=== PATIENT | male | born 1980 | race Caucasian/White ===

== ENCOUNTER 2021-05-11 18:49 | Observation (INO) | payer BC ==
[~2021-05-11] VITALS: Ht 185.4 cm; Wt 139.9 kg
[2021-05-11 20:01] LABS: BASO # 0.1 K/mm3 (0.0-0.2); BASO % 0.7 % (0.0-2.0); EOS # 0.3 K/mm3 (0.0-0.7); EOS % 3.2 % (0.0-4.0); GRAN # 5.1 K/mm3 (1.4-6.5); GRAN % 56.1 % (42.2-75.2); HEMOGLOBIN 14.3 g/dl (13.5-18.0); LYMPH # 3.2 K/mm3 (1.2-3.4); MEAN CELL VOLUME 85 fl (80.0-100.0); MEAN CORPUSCULAR HEMOGLOBIN 29 pg (27-31); MEAN CORPUSCULAR HGB CONC 34 g/dl (33.0-37.0); MEAN PLATELET VOLUME 9.9 fl (7.4-10.4); MONO # 0.4 K/mm3 (0.1-0.6); MONO % 4.7 % (1.7-9.3); PLATELET COUNT 208 K/mm3 (130-400); RED BLOOD COUNT 4.94 M/mm3 (4.20-5.60); REDCELL DISTRIBUTION WIDTH-CV 13.1 % (11.5-14.5)
[2021-05-11 20:17] LABS: ALBUMIN 4.3 gm/dL (3.5-5.0); BILIRUBIN,TOTAL 0.9 mg/dL (0.2-1.2); C-REACTIVE PROTEIN 6.15 mg/dL (0.00-0.50); CALCIUM 9.4 mg/dL (8.4-10.2); CREATININE, serum 0.88 mg/dL (0.72-1.25); POTASSIUM 5.2 mmol/L (3.5-4.5); TOTAL PROTEIN 8.3 gm/dL (6.2-8.1)
[2021-05-11 21:41] LABS: COLLECTION METHOD CLEAN CATCH
[2021-05-11 21:52] LABS: MUCOUS Present (NOT PRESENT); PH 5 (5-8); SQUAMOUS EPITHELIAL None Seen /hpf (0-10); URINE APPEARANCE Clear (CLEAR/HAZY); URINE BACTERIA None Seen /hpf (NONE SEEN); URINE BILIRUBIN Negative (NEGATIVE); URINE BLOOD Negative (NEGATIVE); URINE COLOR Yellow (YELLOW); URINE GLUCOSE Negative (NEGATIVE); URINE KETONE Negative (NEGATIVE); URINE LEUKOCYTE ESTERASE Negative (NEGATIVE); URINE NITRATE Negative (NEGATIVE); URINE PROTEIN(semi-quant) Negative (NEGATIVE); URINE RBC 0-2 /hpf (0-2); URINE UROBILINOGEN Negative (NEGATIVE)
[2021-05-12] VITALS (11 sets, daily range): BP systolic 121–139; BP diastolic 59–77; PULSE 65–80; TEMP 97.4–98.2
--- NOTE | 2021-05-12 00:23 | NUR ---
RECEIVED REPORT FROM Bhavani ISBELL, GEMA. WAITING FOR PATIENT ARRIVAL FOR ADMIT TO ROOM 331.
--- NOTE | 2021-05-12 00:40 | NUR ---
PATIENT ARRIVED TO ROOM 331 VIA W/C BEING TRANSPORTED BY Bhavani RNGEMA. IV FLUIDS RUNNING PER GRAVITY WITH NO PROBLEMS AT TIME OF ADMIT. DENIES ANY DISCOMFORT, CHEST PAIN/NAUSEA/SOA AT THIS TIME. DENIES URGE TO VOID.
[2021-05-12] MEDS ORDERED: ZYLOPRIM 100MG100 MG PO (00:45)
[2021-05-12] MEDS ORDERED: TRICOR145 MG PO (00:48)
[2021-05-12] MEDS ORDERED: ADVIL LIQUI-GE200 MG PO (00:48)
[2021-05-12] MEDS ORDERED: ALEVE 220MG220 MG PO (00:50)
[2021-05-12] MEDS ORDERED: COLCRYS0.6 MG PO (00:51)
[2021-05-12] MEDS ORDERED: MOBIC15 MG PO (00:53)
--- NOTE | 2021-05-12 07:17 | NUR ---
CHANGE OF SHIFT REPORT GIVEN TO DAY SHIFT RNDENISE.
--- NOTE | 2021-05-12 07:30 | NUR ---
Pt doing well this morning, having little to no pain. Preop checklist completed, pt ready for surgery. All questions answered, call light within reach, will continue to monitor
--- NOTE | 2021-05-12 11:00 | NUR ---
Pt back recently from surgery. He is alert and oriented and has had ice water with no complaints of nausea. Gave him some applesauce and water at this time. Pts mother at bedside. Pt denies having any pain. Educated him on post op care. Call light within reach, will continue to monitor
--- NOTE | 2021-05-12 11:26 | NUR ---
First visit from the family and consumer education teacher. NO needs right now.
--- NOTE | 2021-05-12 13:00 | NUR ---
Pt has had and tolerated a general diet, continues to state that he is not having any pain. Pts mom has been present off and on. VSS. PT continues to deny any needs, call light within reach
--- NOTE | 2021-05-12 14:02 | NUR ---
Social Work student met with patient to discuss discharge planning. Patient lives alone in [place]. Patient's emergency contact is his mom, Farzaneh(ph#[phone]). Patient sees Dr. Vance Kate for primary care, and he receives his medications from [facility]. Patient utilizes a CPAP for durable medical equiptment. Patient does not use any oxygen. Patient is independent with his ADL's. Patient has not filled out a DPOA-HC, and stated he is not interested in filling one out at this time. Therefore, SW student established next of kin. Patient is not and has never had kids, so his next of kin would be his mother, Farzaneh. The patient's father is . Patient has one brother, Timoteo Mccarthy(ph#[phone]), and one sister, Jenny Parr(ph#[phone]). Discharge plan: Home
--- NOTE | 2021-05-12 15:16 | NUR ---
Pt continues to do well, he has voided several times. Still not having any complaints of pain, denies the need for pain medication. Call light within reach, will continue to monitor
--- NOTE | 2021-05-12 17:52 | NUR ---
Dr Muse in recently to see patient, discharge orders wrote. Reviewed discharge instructions with pt to include follow up appointment and pain management. Pts mother present at this time. INT removed from left AC. Pt escorted out.
== END 2021-05-12 17:53 | disposition home or self-care (01) ==
LOC: COL.ER 18:49 → SURG 22:38
PROVIDERS: Nurse Practitioner; ADMIT Surgery
DX: K35.80 Unspecified acute appendicitis (principal); M10.9 Gout, unspecified
CPT/HCPCS: G0378; J0330; J0690; J1100; J1885; J2250; J2405; J2543; J2704; J3010; J7030; J7120; Q9967